=== PATIENT | female | born 1940 | race Caucasian/White ===

== ENCOUNTER → 2017-01-13 | Outpatient (CLI) | payer MEDICARE ==
[2015-06-04 05:32] VITALS: BP 123/46
[~2017-01-13] MED LIST: ASPI325T11 PO; CYAN10005 PO; SENN8.6T99 PO; VITA100075 PO; bioidentical hormone PO; dhea PO
--- NOTE | 2017-01-13 14:35 | RAD ---
DATE: 01/13/2017 EXAM: MAMMO GABRIELA SCREENING BILATERAL Bilateral digital screening mammography to include digital breast tomosynthesis (3D mammography) HISTORY: Screening study. COMPARISON: 01/13/2016 This study was interpreted with the benefit of Computerized Aided Detection (CAD). FINDINGS: Digital MLO and CC mammograms of both breasts were obtained. Additionally digital breast tomosynthesis (3D mammography) images of both breasts in the MLO and CC projections were performed. Comparison study is dated 01/13/2016. The breast parenchyma is heterogeneously dense which can obscure a lesion on mammography (breast density code C). No spiculated mass is seen. No malignant appearing calcification or area of architectural distortion is noted. Benign-appearing calcifications are seen within both breasts. Digital breast tomosynthesis images demonstrate no spiculated mass or malignant appearing calcification. Since the previous examination there has been no significant interval change. IMPRESSION: BI-RADS Category 1, negative. There is no mammographic evidence of malignancy. Routine yearly screening mammography is recommended for follow-up. BI-RADS CATEGORY: 1 NEGATIVE RECOMMENDED FOLLOW-UP: 12M 12 MONTH FOLLOW-UP PQRS compliance statement: Patient information was entered into a reminder system with a target due date 01/13/2018 for the next mammogram. Mammography is a sensitive method for finding small breast cancers, but it does not detect them all and is not a substitute for careful clinical examination. A negative mammogram does not negate a clinically suspicious finding and should not result in delay in biopsying a clinically suspicious abnormality. "Our facility is accredited by the [employer] Mammography [employer]."
== END | disposition home or self-care (01) ==
LOC: MAMMO 10:38
PROVIDERS: ATTEND Physician Assistant Medical
DX: Z12.31 Encounter for screening mammogram for malignant neoplasm of breast (principal)
CPT/HCPCS: 77063; G0202; 77067

== ENCOUNTER → 2018-01-18 | Outpatient (CLI) | payer MEDICARE ==
[2015-06-04 05:32] VITALS: BP 123/46
--- NOTE | 2018-01-18 12:13 | RAD ---
DATE: 01/18/2018 EXAM: Bilateral digital mammograms, HISTORY: Routine screening COMPARISON: 01/13/2017 This study was interpreted with the benefit of Computerized Aided Detection (CAD). The breast parenchyma is heterogeneously dense, which could reduce sensitivity of mammography. Breast parenchyma level C. FINDINGS: 2-D mammograms are obtained in CC and MLO projections. There is dense fibroglandular tissue in the lateral aspects of both breasts which is somewhat asymmetric. No new or enlarging breast densities are seen. Minimal benign type calcification is present. No suspicious microcalcifications are evident. IMPRESSION: There is no mammographic evidence of malignancy in either breast. BI-RADS CATEGORY: 2 BENIGN FINDING(S) RECOMMENDED FOLLOW-UP: 12M 12 MONTH FOLLOW-UP PQRS compliance statement: Patient information was entered into a reminder system with a target due date for the next mammogram. Mammography is a sensitive method for finding small breast cancers, but it does not detect them all and is not a substitute for careful clinical examination. A negative mammogram does not negate a clinically suspicious finding and should not result in delay in biopsying a clinically suspicious abnormality. "Our facility is accredited by the [employer] Mammography [employer]."
== END | disposition home or self-care (01) ==
LOC: MAMMO 10:07
PROVIDERS: ATTEND Physician Assistant Medical
DX: Z12.31 Encounter for screening mammogram for malignant neoplasm of breast (principal); E78.00 Pure hypercholesterolemia, unspecified; E03.9 Hypothyroidism, unspecified
CPT/HCPCS: 77063; 77067

== ENCOUNTER 2018-12-27 12:19 | Emergency (ER) | payer MEDICARE ==
[~2018-12-27] VITALS: Ht 162.6 cm; Wt 64.9 kg
[2018-12-27 12:37] VITALS: BP 134/48
--- NOTE | 2018-12-27 13:08 | PHYS DOC ---
Past History Past Medical History: CVA, DVT Past Surgical History: Hysterectomy, Tonsillectomy Alcohol Use: Occasionally Drug Use: None Adult General Chief Complaint Chief Complaint: ABRASION HPI HPI 78-year-old female presents with left elbow abrasion. The patient fell and had a skin tear 2 days ago. She has been managing at home. She presents today because it keeps bleeding when she changes the dressing. The patient does take a full strength aspirin daily. She does not have any difficulty with her elbow joint. She has a long smoking history. She denies any other injuries or complaints. Review of Systems Review of Systems Constitutional: Denies fever or chills [] Eyes: Denies change in visual acuity, redness, or eye pain [] HENT: Denies nasal congestion or sore throat [] Respiratory: Denies cough or shortness of breath [] Cardiovascular: No additional information not addressed in HPI [] GI: Denies abdominal pain, nausea, vomiting, bloody stools or diarrhea [] : Denies dysuria or hematuria [] Musculoskeletal: Denies back pain or joint pain [] Integument: Left elbow abrasion[] Neurologic: Denies headache, focal weakness or sensory changes [] Endocrine: Denies polyuria or polydipsia [] All other systems were reviewed and found to be within normal limits, except as documented in this note. Allergies Allergies Allergies Coded Allergies Type Severity Reaction Last Updated Verified No Known Drug Allergies 06/02/15 No Physical Exam Physical Exam Constitutional: Well developed, well nourished, no acute distress, non-toxic appearance. [] HENT: Normocephalic, atraumatic, bilateral external ears normal, oropharynx moist, no oral exudates, nose normal. [] Eyes: PERRLA, EOMI, conjunctiva normal, no discharge. [] Neck: Normal range of motion, no tenderness, supple, no stridor. [] Cardiovascular:Heart rate regular rhythm, no murmur [] Lungs & Thorax: Bilateral breath sounds clear to auscultation [] Abdomen: Bowel sounds normal, soft, no tenderness, no masses, no pulsatile masses. [] Skin: 3 cm triangular-shaped skin tear of the left elbow, not currently bleeding[] Back: No tenderness, no CVA tenderness. [] Extremities: No tenderness, no cyanosis, no clubbing, ROM intact, no edema. [] Neurologic: Alert and oriented X 3, normal motor function, normal sensory fu nction, no focal deficits noted. [] Psychologic: Affect normal, judgement normal, mood normal. [] Current Patient Data Vital Signs Vital Signs Date Time Temp Pulse Resp B/P (MAP) Pulse Ox O2 Delivery O2 Flow Rate FiO2 12/27/18 12:37 98.2 85 18 97 Room Air EKG EKG [] Radiology/Procedures Radiology/Procedures [] Course & Med Decision Making Course & Med Decision Making Pertinent Labs and Imaging studies reviewed. (See chart for details) The patient's skin tear is too superficial to benefit from sutures. I believe the patient has been messing with the wound and it rebleeds. She had a dry dressing on it that tore the skin when she changed it. We will place a nonadherent bandage with coagulant agent over the wound. I've advised she keep it covered couple of days like this. She'll then change the dressing daily with nonadherent pads. She is stable for discharge at this time. [] Dragon Disclaimer Dragon Disclaimer This electronic medical record was generated, in whole or in part, using a voice recognition dictation system. Departure Departure: Impression: Primary Impression: Abrasion of left arm Disposition: 01 HOME, SELF-CARE Condition: STABLE Referrals: LILIBETH TSAI (PCP) Patient Instructions: Skin Tear Care, [id number] Problem Qualifiers Primary Impression: Abrasion of left arm Encounter type: initial encounter Qualified Codes: S40.812A - Abrasion of left upper arm, initial encounter DENICE TAY DO December 27, 2018 13:07
== END 2018-12-27 13:13 | disposition home or self-care (01) ==
LOC: ER 12:19
DX: S51.012A Laceration without foreign body of left elbow, initial encounter (principal); Z86.718 Personal history of other venous thrombosis and embolism; Z86.73 Personal history of transient ischemic attack (TIA), and cerebral infarction without residual deficits; W18.39XA Other fall on same level, initial encounter; Y93.89 Activity, other specified; Y92.89 Other specified places as the place of occurrence of the external cause; Y99.8 Other external cause status
CPT/HCPCS: 99283; 99284

== ENCOUNTER → 2019-01-22 | Outpatient (CLI) | payer MEDICARE ==
[2018-12-27 12:37] VITALS: BP 134/48
--- NOTE | 2019-01-24 09:37 | RAD ---
DATE: 01/22/2019 3:00 PM EXAM: DIGITAL SCREEN BILAT W/CAD HISTORY: routine screening evaluation. COMPARISON: 01/18/2018, 01/13/2017, 01/13/2016 Bilateral full field craniocaudal and mediolateral oblique images were obtained using digital technique. This study was interpreted with the benefit of Computerized Aided Detection (CAD). Breast Density: The breast parenchyma is heterogeneously dense, which could reduce sensitivity of mammography. Breast parenchyma level C. FINDINGS: Benign calcifications are present. The parenchymal pattern appears stable. No suspicious masses, microcalcifications or architectural distortion is present to suggest malignancy in either breast. The visualized axillae are unremarkable. IMPRESSION: No mammographic evidence of malignancy. BI-RADS CATEGORY: 2 BENIGN FINDING(S) RECOMMENDED FOLLOW-UP: 12M 12 MONTH FOLLOW-UP Annual screening mammography is recommended, unless clinically indicated sooner based on symptoms or change in physical exam. PQRS compliance statement: Patient information was entered into a reminder system with a target due date 01/24/2020 for the next mammogram. Mammography is a sensitive method for finding small breast cancers, but it does not detect them all and is not a substitute for careful clinical examination. A negative mammogram does not negate a clinically suspicious finding and should not result in delay in biopsying a clinically suspicious abnormality. "Our facility is accredited by the [employer] Mammography [employer]." DIANAD
== END | disposition home or self-care (01) ==
LOC: MAMMO 14:43
PROVIDERS: ATTEND Physician Assistant Medical
DX: Z12.31 Encounter for screening mammogram for malignant neoplasm of breast (principal)
CPT/HCPCS: 77067

== ENCOUNTER → 2020-01-29 | Outpatient (CLI) | payer MEDICARE ==
[~2020-01-29] MED LIST changes: +CYAN-25 PO; -CYAN10005 PO
--- NOTE | 2020-01-30 12:03 | RAD ---
BILATERAL SCREENING MAMMOGRAM History: Routine screening. Comparison: 01/22/2019, 01/18/2018, 01/13/2017, 01/13/2016. Technique: Routine bilateral digital mammogram views were obtained. Findings: Breast Tissue Density C : The breasts are heterogeneously dense, which may obscure small masses. At the left upper outer mid to posterior breast region, there is now a well-circumscribed round mass seen measuring slightly less than 0.6 cm diameter. It is located approximately 5 cm from the nipple in the 3:00 to 4:00 region. No suspicious calcifications or distortion. IMPRESSION: A new left breast mass is present. Ultrasound recommended for further evaluation. Diagnostic mammographic images may be needed. BI-RADS Category 0: Incomplete: Need additional imaging evaluation. The images were reviewed with computer aided detection. Patient information is entered into the reminder system with a target due date for the next screening mammogram. Mammography is the most sensitive method for finding small breast cancers, but it does not detect them all and is not a substitute for careful clinical examination. A negative mammogram does not negate a clinically suspicious finding and should not result in delay in biopsying a clinically suspicious abnormality. "Our facility is accredited by the [employer] Mammography [employer]." Electronically signed by: Catarino Caceres MD (01/30/2020 12:00 PM) [id number]
== END | disposition home or self-care (01) ==
LOC: MAMMO 10:04
PROVIDERS: ATTEND Physician Assistant Medical
DX: Z12.31 Encounter for screening mammogram for malignant neoplasm of breast (principal)
CPT/HCPCS: 77067

== ENCOUNTER → 2020-02-11 | Outpatient (CLI) | payer MEDICARE ==
--- NOTE | 2020-02-11 17:57 | RAD ---
Examination: BREAST LEFT History: Reason: ABNORMAL MAMMO / Spl. Instructions: / History: Comparison/Correlation: 01/29/2020 mammogram Findings: Ultrasound imaging was performed in the left subareolar region demonstrating dilated ducts. At the 3:00 region 5 cm from nipple, there is a hypoechoic structure measuring 0.5 cm x 0.4 cm x 0.2 cm tall. No flow within it. It is well-circumscribed. At the 4:30 region 4 cm from the nipple, there is a septated structure measuring 1.6 cm x 1.4 cm x 0.4 cm tall. No flow within it. This appears to correspond with finding on mammography. Impression: BI-RADS Category 3-probably benign. Six-month follow-up left diagnostic mammogram and left breast ultrasound exam recommended to assess stability. Electronically signed by: Catarino Caceres MD (02/11/2020 5:54 PM) [id number]
== END | disposition home or self-care (01) ==
LOC: US 13:35
PROVIDERS: ATTEND Physician Assistant Medical
DX: R92.2 Inconclusive mammogram (principal)
CPT/HCPCS: 76641

== ENCOUNTER → 2020-08-29 | Outpatient (CLI) | payer MEDICARE ==
--- NOTE | 2020-08-29 15:18 | RAD ---
EXAMINATION: US BREAST LT, MG DIAGNOSTICUNILAT MAMMO CLINICAL HISTORY: 6 MO FOLLOW UP LEFT BREAST TECHNIQUE: Digital craniocaudal, mediolateral oblique, and exaggerated lateral craniocaudal views of the left breast obtained. Targeted left breast ultrasound also performed. COMPARISON: Left breast ultrasound 02/11/2020, bilateral screening mammogram 01/29/2020 BREAST COMPOSITION: The breasts are heterogeneously dense, which may obscure small masses. FINDINGS: LEFT DIAGNOSTIC MAMMOGRAM: The previously seen small mass in the lateral breast is not appreciated on this exam. No evidence of new or suspicious mass. No evidence of suspicious calcifications or areas of architectural distortion. LEFT BREAST ULTRASOUND: The previously seen small masses in the lateral left breast are not appreciat ed on this exam. Benign-appearing retroareolar ductal ectasia again noted, similar to prior study. No evidence of new or suspicious mass. No suspicious findings in the left axilla. IMPRESSION: Interval resolution of the previously seen left lateral breast masses. BI-RADS ASSESSMENT: Category 2: Benign RECOMMENDATION: Return for annual routine bilateral screening mammogram in 6 months. PQRS compliance statement - Patient information was entered into a reminder system with a target due date for the next mammogram. "Our facility is accredited by the [employer] Mammography [employer]." Electronically signed by: Sal Hicks DO (08/29/2020 3:15 PM) [facility]
== END ==
LOC: MAMMO 12:37
PROVIDERS: ATTEND Physician Assistant Medical
DX: R92.2 Inconclusive mammogram (principal)
CPT/HCPCS: 76641; 77065

== ENCOUNTER → 2021-05-21 | Outpatient (CLI) | payer MEDICARE ==
--- NOTE | 2021-05-21 14:12 | RAD ---
CT Head W/O Contrast: History: Reason: IMBALANCED, HISTORY OF STROKE / Spl. Instructions: / History: Comparison: none Axial images were obtained without contrast. There is marked diffuse atrophy. There is right There is no mass effect, extraaxial fluid collections or hydrocephalus. There is cephalization consistent with a large old right MCA territory stroke. The re is old lacunar infarct in the left thalamus. There is an old lacunar infarct in the right cerebell ar lobe. There is no focal loss of parrish-white matter distinction to suggest acute ischemia, i.e. stroke. Impression: 1. Marked diffuse cerebral and cerebellar atrophy. 2. Old infarcts. 3. No acute findings. End impression PQRS Compliance Statement: One or more of the following individualized dose reduction techniques were utilized for this examinat ion: 1. Automated exposure control 2. Adjustment of the mA and/or kV according to patient size 3. Use of iterative reconstruction technique Electronically signed by: Hans Vasquez III, MD (05/21/2021 2:10 PM) [facility]ERT[facility]
== END ==
LOC: RAD 13:49
PROVIDERS: ATTEND Psychiatry & Neurology Neurology
DX: G31.9 Degenerative disease of nervous system, unspecified (principal); I63.9 Cerebral infarction, unspecified; R26.89 Other abnormalities of gait and mobility
CPT/HCPCS: 70450

== ENCOUNTER → 2021-09-11 | Outpatient (CLI) | payer MEDICARE ==
--- NOTE | 2021-09-14 15:21 | RAD ---
BILATERAL DIGITAL SCREENING 2-D MAMMOGRAM INDICATION: Routine screening. COMPARISON: August 29, 2020, February 11, 2020, January 22, 2019, January 18, 2018 Interpretation was made using CAD. FINDINGS: Breast Density: The breasts are heterogeneously dense, which may obscure small masses. RIGHT BREAST: No suspicious masses, calcifications or areas of architectural distortion are seen. LEFT BREAST: No suspicious masses, calcifications or areas of architectural distortion are seen. IMPRESSION: 1. No imaging evidence of malignancy. ASSESSMENT: BI-RADS 1. Negative. RECOMMENDATION: Routine annual screening mammogram. The facility will notify the patient of the results via mail. Patient information will be entered int o the mammography reminder system with a target recall date for the next mammogram. A reminder letter will be generated by the facility. Electronically signed by: Geneva Hopper MD (09/14/2021 3:18 PM) [id number]
== END ==
LOC: MAMMO 11:09
PROVIDERS: ATTEND Physician Assistant Medical
DX: Z12.31 Encounter for screening mammogram for malignant neoplasm of breast (principal)
CPT/HCPCS: 77067